=== PATIENT | female | born 1990 | race Caucasian/White ===

== ENCOUNTER 2016-08-17 05:21 | Emergency (ER) | payer SELFPAY ==
[2016-08-17 05:40] VITALS: BP 106/69; PULSE 97; TEMP 99.1; BMI 24.4
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
[2016-08-17] MEDS ORDERED: OXYCODONE/APAP 5/325MG COMBO TABLET PO ONE (06:14)
[2016-08-17] MEDS ORDERED: ACETAMINOPHEN 325 MG TABLET (FP) PO ONE (06:17)
[2016-08-17] MEDS ORDERED: ACETAMINOPHEN 325 MG TABLET (FP) ONE (06:19)
== END 2016-08-17 06:31 | disposition home or self-care (01) ==
LOC: JER 05:21
PROC: 2W2FX4Z Dressing of Left Hand using Bandage (ICD-10-PCS; principal; 2016-08-17)
PROC: 2W2JX4Z Dressing of Right Finger using Bandage (ICD-10-PCS; 2016-08-17)
DX: T23.241A Burn of second degree of multiple right fingers (nail), including thumb, initial encounter (principal); X08.8XXA Exposure to other specified smoke, fire and flames, initial encounter; Y93.89 Activity, other specified; Y92.038 Other place in apartment as the place of occurrence of the external cause; Y99.8 Other external cause status
CPT/HCPCS: 99281-25

== ENCOUNTER 2017-07-17 00:21 | Emergency (ER) | payer BC, OTHER ==
[2017-07-17 01:18] VITALS: BP 116/67; PULSE 70; TEMP 98.4; BMI 26.4
--- NOTE | 2017-07-17 02:32 | PDOC ---
History of Present Illness - General Chief Complaint: Pain Stated Complaint: PAIN,RT SIDE Time Seen by Provider: 07/17/17 01:37 History Source: Patient Exam Limitations: No Limitations - History of Present Illness Initial Comments: 07/17/17 04:30 27F with no pmh presents to the ED for RLQ pain/discomfort and occasional swelling since august exacerbated by strenuous activities like cardio training and intercourse. She presented to the Ed of [facility] on May 24 where a full lab workup and CT abd & pelvis were performed. CT showed possible appendix stone but no acute appendicitis. Patient states the she is to fly to [facility] at the end of July for breast implants operation and wanted peace of mind. 07/17/17 04:40 No history of appendicitis. Past History - Past Medical History Allergies/Adverse Reactions: Allergies Allergy/AdvReac Type Severity Reaction Status Date / Time No Known Allergies Allergy Verified 08/17/16 05:51 Home Medications: Ambulatory Orders Albuterol Sulfate Inhaler - [Ventolin Hfa Inhaler -] 1 puff IH PRN 08/17/16 COPD: No - Suicide/Smoking/Psychosocial Hx Smoking History: Never smoked Have you smoked in the past 12 months: Yes Number of Cigarettes Smoked Daily: 2 Information on smoking cessation initiated: No Hx Alcohol Use: No Drug/Substance Use Hx: No Substance Use Type: None Review of Systems - Review of Systems Able to Perform ROS?: Yes Is the patient limited [place] proficient: No Constitutional: No: Symptoms Reported HEENTM: No: Symptoms Reported Respiratory: No: Symptoms reported Cardiac (ROS): No: Symptoms Reported ABD/GI: No: Symptoms Reported : No: Symptoms Reported Musculoskeletal: No: Symptoms Reported Integumentary: No: Symptoms Reported Neurological: No: Symptoms reported All Other Systems: Reviewed and Negative *Physical Exam - Vital Signs Last Vital Signs Temp Pulse Resp BP Pulse Ox 98.4 F 70 18 116/67 100 07/17/17 00:35 07/17/17 00:35 07/17/17 00:35 07/17/17 00:35 07/17/17 00:35 - Physical Exam General Appearance: Yes: Nourished, Appropriately Dressed. No: Apparent Distress HEENT: positive: EOMI, [place], Normal ENT Inspection Neck: negative: Tender Respiratory/Chest: positive: Chest Tender, Lungs Clear, Normal Breath Sounds. negative: Respiratory Distress Cardiovascular: positive: Regular Rhythm, Regular Rate, S1, S2 Gastrointestinal/Abdominal: positive: Normal Bowel Sounds, Flat, Soft. negative : Tender Extremity: positive: Normal Capillary Refill, Normal Inspection, Normal Range of Motion Neurologic: positive: welder setter resistance machine II-XII NML intact, Fully Oriented, Alert, Normal Mood/ Affect, Normal Response, Motor Strength 10/27 ED Treatment Course - LABORATORY CBC & Chemistry Diagram: 07/17/17 03:00 07/17/17 02:57 Medical Decision Making - Medical Decision Making 07/17/17 04:39 All basic labs negative. Pelvic exam negative for adnexal tenderness, cervical motion tenderness or bleed. Patient ok to be d/C, no acute pain. *DC/Admit/Observation/Transfer Diagnosis at time of Disposition: Abdominal discomfort in right lower quadrant - Discharge Dispostion Disposition: HOME Admit: No - Referrals Referrals: Viv Neil MD [Primary Care Provider] - - Patient Instructions Printed Discharge Instructions: DI for Abdominal Pain-Adult Additional Instructions: Come back to the Emergency Department for any new, worsening or concerning symptoms. Follow up with your primary provider within the next 5 days. - Post Discharge Activity
[2017-07-17 03:22] LABS: BASO % 0.3 % (0-2.0); HEMATOCRIT 39.2 % (32.4-45.2); HEMOGLOBIN 13.6 GM/dL (10.7-15.3); LYMPH % 35.1 % (8-40); MCH 29.5 pg (25.7-33.7); MCHC 34.6 g/dl (32.0-36.0); MEAN CELL VOLUME 85.1 fl (80-96); MEAN PLT VOLUME 9.2 fl (7.5-11.1); MONO % 5.4 % (3.8-10.2); NEUT % 58.2 % (42.8-82.8); PLATELET COUNT 258 K/MM3 (134-434); RDW 13.4 % (11.6-15.6); WHITE BLOOD COUNT 9.8 K/mm3 (4.0-10.0)
[2017-07-17 03:39] LABS: ALBUMIN 4.1 g/dl (3.4-5.0); ANION GAP 5 (8-16); BLOOD UREA NITROGEN 12 mg/dL (7-18); CALCIUM 8.6 mg/dL (8.5-10.1); CHLORIDE 106 mmol/L (98-107); CO2 30 mmol/L (21-32); CREATININE 0.8 mg/dL (0.55-1.02); GLUCOSE,RANDOM 77 mg/dL (74-106); SGOT/AST 13 U/L (15-37); SGPT/ALT 23 U/L (12-78); SODIUM 141 mmol/L (136-145)
[2017-07-17 03:41] LABS: ALK PHOS 44 U/L (45-117); BILIRUBIN,TOTAL 0.5 mg/dL (0.2-1.0)
[2017-07-17 03:45] LABS: HCG,QUALITATIVE URINE NEGATIVE; URINE APPEARANCE CLOUDY; URINE BILIRUBIN NEGATIVE (NEGATIVE); URINE BLOOD NEGATIVE (NEGATIVE); URINE COLOR YELLOW; URINE GLUCOSE (UA) NEGATIVE (NEGATIVE); URINE KETONE NEGATIVE (NEGATIVE); URINE LEUK ESTERASE NEGATIVE (NEGATIVE); URINE NITRITE NEGATIVE (NEGATIVE); URINE PROTEIN NEGATIVE (NEGATIVE); URINE UROBILINOGEN NEGATIVE mg/dL (0.2-1.0)
== END 2017-07-17 04:44 | disposition home or self-care (01) ==
LOC: JER 00:21
DX: R10.31 Right lower quadrant pain (principal)
CPT/HCPCS: 36415; 80053; 81003; 84703; 85025; 99282-25